=== PATIENT | male | born 1970 | race Two or more races ===

== ENCOUNTER 2016-05-21 17:56 | Emergency (ER) | payer SELFPAY ==
[~2016-05-21] VITALS: Ht 182.9 cm; Wt 81.6 kg
[2016-05-21 18:09] VITALS: BP 188/98
== END 2016-05-21 23:20 | disposition left against medical advice (07) ==
LOC: ER 18:03
DX: R10.9 Unspecified abdominal pain (principal); Z53.21 Procedure and treatment not carried out due to patient leaving prior to being seen by health care provider